=== PATIENT | male | born 1955 | race Caucasian/White ===

== ENCOUNTER 2021-01-15 21:58 | Inpatient (IN) | payer OTHER, MEDICAID ==
[~2021-01-15] VITALS: Ht 180.3 cm; Wt 86.0 kg
[~2021-01-15 21:58] MED LIST: FLUP5TAB14 OR; LITH300C3 OR; QUET400T OR; TRAZ100T3 OR; ZOLP10TA6 OR
[2021-01-15 23:04] LABS: Basophils # (auto) 0 10 ^3/uL (0-0.2); Basophils % (auto) 0.4 % (0.0-2.0); Eosinophils # (auto) 0.1 10 ^3/uL (0-0.8); Eosinophils % (auto) 0.6 % (0.0-7.0); Hematocrit 49.2 % (41.0-53.0); Hemoglobin 15.8 g/dL (13.5-17.5); Lymphocytes # (auto) 0.7 10 ^3/uL (0.4-5.4); Lymphocytes % (auto) 5.1 % (10.0-50.0); Mean Corpuscular Hemoglobin 30.1 pg (28.0-32.0); Mean Corpuscular Hgb Conc. 32.1 g/dL (32.0-36.0); Mean Corpuscular Volume 93.5 fL (80.0-100.0); Monocytes # (auto) 0.7 10 ^3/uL (0-1.3); Monocytes % (auto) 5.4 % (0.0-12.0); Neutrophils # (auto) 11.9 10 ^3/uL (1.6-8.6); Neutrophils % (auto) 88.5 % (37.0-80.0); Nucleated Red Blood Cells % 0.1 %; Platelet Count (auto) 224 10^3/uL (140-450); Red Blood Cells 5.26 10^6/uL (4.5-5.90); Red Cell Distribution Width 16.4 % (11.8-14.3); White Blood Cell 13.4 10^3/uL (4.4-10.8)
[2021-01-15 23:23] LABS: INR 1.14 (0.9-1.15); Partial Thromboplastin Time 29.1 sec (23.0-31.2)
[2021-01-15 23:24] LABS: Albumin 3.5 g/dL (3.4-5.0); Anion Gap 5 (5-15); Blood Urea Nitrogen 21 mg/dL (7-18); Calcium 9.1 mg/dL (8.5-10.1); Carbon Dioxide 34 mmol/L (21-32); Chloride 96 mmol/L (98-107); Glucose 99 mg/dL (74-106); Magnesium 2.5 mg/dL (1.6-2.6); Potassium 4.3 mmol/L (3.5-5.1); Sodium 135 mmol/L (136-145)
[2021-01-15 23:27] LABS: BUN/Creatinine Ratio 15.7; GFR African American 69 mL/min; GFR Non-African American 57 mL/min
[2021-01-15 23:38] LABS: Alanine Aminotransferase 37 U/L (16-61); Alkaline Phosphatase 47 U/L (45-117); Aspartate Aminotransferase 15 U/L (15-37); Bilirubin, Total 0.9 mg/dL (0.2-1.0); Total Protein 6.8 g/dL (6.4-8.2)
[2021-01-15] MEDS ORDERED: FUROSEMIDE 20 MG/2 ML VIAL IV ONE (23:45)
[2021-01-15] MEDS ORDERED: VANCOMYCIN PER PHARMACY 0 MG IV SCH (23:45)
[2021-01-15] MEDS ORDERED: VANCOMYCIN 1GM/250ML 250 ML IV ONE (23:45)
[2021-01-15] MEDS ORDERED: PIPERACILLIN-TAZOB 3.375GM 100 ML IV ONE (23:45)
[2021-01-16 00:36] LABS: Lactic Acid w/Reflex 2.1 mmol/L (0.4-2.0)
[2021-01-16 01:58] LABS: Urine WBC None Seen /hpf (0 - 3)
[2021-01-16 02:12] LABS: Urine Bacteria NONE SEEN /hpf (None Seen); Urine Blood Negative /uL (Negative); Urine Mucus FEW (None Seen); Urine Specific Gravity 1.006 (1.001-1.035)
[2021-01-16 02:37] LABS: Alcohol, Urine < 3.0 mg/dL (0-10); Amphetamine Screen, Urine NEGATIVE (NEGATIVE); Barbiturate Scree,Urine NEGATIVE (NEGATIVE); Benzodiazephine Screen, Urine NEGATIVE (NEGATIVE); Cannabinoid Screen, Urine NEGATIVE (NEGATIVE); Cocaine Screen, Urine NEGATIVE (NEGATIVE); Opiate Scree,Urine NEGATIVE (NEGATIVE); Phencyclidine Screen, Urine NEGATIVE (NEGATIVE)
[2021-01-16] MEDS ORDERED: NITROGLYCERIN 0.4 MG SL TAB SL PRN (04:30)
[2021-01-16] MEDS ORDERED: ONDANSETRON HCL 4 MG/2 ML VIAL IV PRN (04:30)
[2021-01-16] MEDS ORDERED: ACETAMINOPHEN 325 MG TAB PO PRN (04:30)
[2021-01-16] MEDS ORDERED: MORPHINE SULF INJ 2 MG/ML SYRINGE 1ML IV PRN (04:30)
[2021-01-16] MEDS ORDERED: TEMAZEPAM 15 MG CAP PO PRN (04:30)
[2021-01-16] MEDS ORDERED: ALBUTEROL SULF 2.5 MG/0.5ML(0.5%) NEB SOLN NEB PRN (04:30)
[2021-01-16] MEDS: FUROSEMIDE 20 MG/2 ML VIAL IV SCH ×2 (06:13→17:32)
[2021-01-16 06:27] VITALS: BP 113/76
[2021-01-16] MEDS ORDERED: PROP10TA57 PO (06:34)
[2021-01-16] MEDS ORDERED: LITH300C3 PO (06:34)
[2021-01-16] MEDS ORDERED: IPRAAER6 IN (06:34)
[2021-01-16] MEDS ORDERED: FOLI1TAB6 PO (06:34)
[2021-01-16] MEDS ORDERED: TRAZ100T3 PO (06:34)
[2021-01-16] MEDS ORDERED: LEVO500T31 PO (06:34)
[2021-01-16] MEDS ORDERED: ASPI-498 OR (06:34)
[2021-01-16] MEDS ORDERED: QUET200T4 PO (06:34)
[2021-01-16] MEDS ORDERED: SIMV20TA2 PO (06:34)
[2021-01-16 06:37] VITALS: BP 101/42
[2021-01-16] MEDS ORDERED: PNEUMOCOCCAL VACC POLYS 25 MCG/0.5 ML VIAL IM ONE (06:45)
[2021-01-16 09:00] VITALS: BP 121/78
[2021-01-16] MEDS: ASPirin 81 mg TAB PO SCH (09:00)
[2021-01-16] MEDS: QUEtiapine FUMARATE 100 MG TAB PO SCH ×2 (09:00→21:38)
[2021-01-16] MEDS: PANTOPRAZOLE 40 MG TAB PO SCH (09:01)
[2021-01-16] MEDS: ENOXAPARIN SOD 40 MG/0.4 ML SYRINGE SC SCH (09:01)
[2021-01-16] MEDS: cefTRIAXone 1GM/50ML D5W 50 ML IV SCH (09:02)
[2021-01-16] MEDS: AZITHROMYCIN 500MG/ 250ML 250 ML IV SCH (10:19)
[2021-01-16 10:52] LABS: BUN/Creatinine Ratio 15.3; Calcium 9.1 mg/dL (8.5-10.1); Potassium 3.3 mmol/L (3.5-5.1)
[2021-01-16] MEDS ORDERED: SODIUM BICARBONATE 8.4 % INJ 50ML VIAL IV ONE (12:45)
[2021-01-16 14:00] VITALS: BP 100/78
[2021-01-16 17:17] VITALS: BP 92/57
[2021-01-16] MEDS: ATORVASTATIN 20 MG TAB PO SCH (21:38)
[2021-01-16] MEDS: LITHIUM CARBONATE 300 MG TAB PO SCH (21:38)
[2021-01-16 22:00] VITALS: BP 105/65
[2021-01-17] VITALS (49 sets, daily range): BP systolic 80–117; BP diastolic 48–72
[2021-01-17] MEDS: FUROSEMIDE 20 MG/2 ML VIAL IV SCH ×2 (05:44→17:41)
[2021-01-17 06:43] LABS: Basophils # (auto) 0 10 ^3/uL (0-0.2); Basophils % (auto) 0.2 % (0.0-2.0); Eosinophils # (auto) 0 10 ^3/uL (0-0.8); Eosinophils % (auto) 0.3 % (0.0-7.0); Hematocrit 45.6 % (41.0-53.0); Hemoglobin 14.4 g/dL (13.5-17.5); Lymphocytes # (auto) 0.4 10 ^3/uL (0.4-5.4); Lymphocytes % (auto) 2.3 % (10.0-50.0); Mean Corpuscular Hemoglobin 29.9 pg (28.0-32.0); Mean Corpuscular Hgb Conc. 31.6 g/dL (32.0-36.0); Mean Corpuscular Volume 94.4 fL (80.0-100.0); Monocytes # (auto) 1.2 10 ^3/uL (0-1.3); Monocytes % (auto) 7.4 % (0.0-12.0); Neutrophils # (auto) 14.6 10 ^3/uL (1.6-8.6); Neutrophils % (auto) 89.8 % (37.0-80.0); Nucleated Red Blood Cells % 0.1 %; Platelet Count (auto) 174 10^3/uL (140-450); Red Blood Cells 4.83 10^6/uL (4.5-5.90); Red Cell Distribution Width 16.6 % (11.8-14.3); White Blood Cell 16.3 10^3/uL (4.4-10.8)
[2021-01-17 07:00] LABS: BUN/Creatinine Ratio 14.4; Calcium 8.8 mg/dL (8.5-10.1); Potassium 4.2 mmol/L (3.5-5.1)
[2021-01-17] MEDS: ASPirin 81 mg TAB PO SCH (08:56)
[2021-01-17] MEDS: QUEtiapine FUMARATE 100 MG TAB PO SCH ×2 (08:56→22:00)
[2021-01-17] MEDS: PANTOPRAZOLE 40 MG TAB PO SCH (08:57)
[2021-01-17] MEDS: cefTRIAXone 1GM/50ML D5W 50 ML IV SCH (08:57)
[2021-01-17] MEDS: ENOXAPARIN SOD 40 MG/0.4 ML SYRINGE SC SCH (08:57)
[2021-01-17] MEDS ORDERED: methylPREDNISolone SOD SUCC 125 MG/2 ML VL IV SCH (10:00)
[2021-01-17] MEDS ORDERED: FUROSEMIDE 20 MG/2 ML VIAL IV ONE (10:15)
[2021-01-17] MEDS: methylPREDNISolone SOD SUCC 40 MG/ML VL IV SCH ×2 (10:46→22:00)
[2021-01-17] MEDS: AZITHROMYCIN 500MG/ 250ML 250 ML IV SCH (10:47)
[2021-01-17] MEDS ORDERED: MIDAZOLAM HCL 1MG/1ML-2 ML VIAL ONE (12:14)
[2021-01-17] MEDS ORDERED: SUCCINYLCHOLINE CHLORIDE 20 MG/ML 10ML VIAL IV ONE ×2 (12:14)
[2021-01-17] MEDS ORDERED: ETOMIDATE (2MG/ML) 20ML VIAL IV ONE ×2 (12:14)
[2021-01-17] MEDS ORDERED: ROCURONIUM 10MG/ML 10ML VIAL IV ONE ×2 (12:14→12:22)
[2021-01-17] MEDS: NOREPINEPHRINE 8 MG/250ML KIT 250 ML IV SCH (12:45)
[2021-01-17] MEDS: fentaNYL Drip 2500mCg/250mlNS 250 ML IV SCH (14:00)
[2021-01-17] MEDS ORDERED: LIDOCAINE 1% (LOCAL ANESTH.) PF 5ml SDV ID ONE (15:15)
[2021-01-17] MEDS: MIDAZOLAM DRIP 50 mg/50mL 50 ML IV SCH (15:15)
[2021-01-17] MEDS: LITHIUM CARBONATE 300 MG TAB PO SCH (22:00)
[2021-01-17] MEDS: SODIUM CHLOR 0.9% PF (SALINE LOCK) 10ML VIAL/SYR IV SCH (22:00)
[2021-01-17] MEDS: ATORVASTATIN 20 MG TAB PO SCH (22:00)
[2021-01-18] VITALS (107 sets, daily range): BP systolic 82–144; BP diastolic 43–81
[2021-01-18 04:20] LABS: Basophils # (auto) 0 10 ^3/uL (0-0.2); Basophils % (auto) 0.1 % (0.0-2.0); Eosinophils # (auto) 0 10 ^3/uL (0-0.8); Hematocrit 40.7 % (41.0-53.0); Hemoglobin 13.5 g/dL (13.5-17.5); Lymphocytes # (auto) 0.5 10 ^3/uL (0.4-5.4); Lymphocytes % (auto) 2.5 % (10.0-50.0); Mean Corpuscular Hemoglobin 30.5 pg (28.0-32.0); Mean Corpuscular Hgb Conc. 33.1 g/dL (32.0-36.0); Mean Corpuscular Volume 92.2 fL (80.0-100.0); Monocytes # (auto) 0.6 10 ^3/uL (0-1.3); Monocytes % (auto) 3.1 % (0.0-12.0); Neutrophils # (auto) 17.5 10 ^3/uL (1.6-8.6); Neutrophils % (auto) 94.3 % (37.0-80.0); Platelet Count (auto) 159 10^3/uL (140-450); Red Blood Cells 4.42 10^6/uL (4.5-5.90); Red Cell Distribution Width 16.6 % (11.8-14.3); White Blood Cell 18.5 10^3/uL (4.4-10.8)
[2021-01-18 04:31] LABS: BUN/Creatinine Ratio 21.1; Calcium 9.1 mg/dL (8.5-10.1); Potassium 3.3 mmol/L (3.5-5.1)
[2021-01-18] MEDS: FUROSEMIDE 20 MG/2 ML VIAL IV SCH ×2 (06:00→17:34)
[2021-01-18] MEDS: MIDAZOLAM DRIP 50 mg/50mL 50 ML IV SCH ×3 (06:29→21:27)
[2021-01-18] MEDS: POTASSIUM CHL 20MEQ/100ML 100 ML IV SCH ×2 (09:49→12:11)
[2021-01-18] MEDS: ASPirin 81 mg TAB PO SCH (09:49)
[2021-01-18] MEDS: AZITHROMYCIN 500MG/ 250ML 250 ML IV SCH (09:49)
[2021-01-18] MEDS: PANTOPRAZOLE 40 MG/10 ML VIAL INJ IV SCH (09:49)
[2021-01-18] MEDS: methylPREDNISolone SOD SUCC 40 MG/ML VL IV SCH ×2 (09:49→20:03)
[2021-01-18] MEDS: cefTRIAXone 1GM/50ML D5W 50 ML IV SCH (09:51)
[2021-01-18] MEDS: SODIUM CHLOR 0.9% PF (SALINE LOCK) 10ML VIAL/SYR IV SCH ×2 (09:51→20:02)
[2021-01-18] MEDS: QUEtiapine FUMARATE 100 MG TAB PO SCH ×2 (10:00→20:03)
[2021-01-18] MEDS: ENOXAPARIN SOD 40 MG/0.4 ML SYRINGE SC SCH (12:11)
[2021-01-18] MEDS: NOREPINEPHRINE 8 MG/250ML KIT 250 ML IV SCH (12:45)
[2021-01-18] MEDS: fentaNYL Drip 2500mCg/250mlNS 250 ML IV SCH ×2 (12:45→19:28)
[2021-01-18] MEDS: LITHIUM CARBONATE 300 MG TAB PO SCH (20:03)
[2021-01-18] MEDS: ATORVASTATIN 20 MG TAB PO SCH (20:03)
[2021-01-19] VITALS (106 sets, daily range): BP systolic 109–155; BP diastolic 45–73
[2021-01-19 03:59] LABS: Basophils # (auto) 0.1 10 ^3/uL (0-0.2); Basophils % (auto) 0.5 % (0.0-2.0); Eosinophils # (auto) 0 10 ^3/uL (0-0.8); Hematocrit 37.8 % (41.0-53.0); Hemoglobin 12.4 g/dL (13.5-17.5); Lymphocytes # (auto) 0.5 10 ^3/uL (0.4-5.4); Lymphocytes % (auto) 2.2 % (10.0-50.0); Mean Corpuscular Hemoglobin 29.7 pg (28.0-32.0); Mean Corpuscular Hgb Conc. 32.8 g/dL (32.0-36.0); Mean Corpuscular Volume 90.6 fL (80.0-100.0); Monocytes # (auto) 0.8 10 ^3/uL (0-1.3); Monocytes % (auto) 3.8 % (0.0-12.0); Neutrophils # (auto) 20.6 10 ^3/uL (1.6-8.6); Neutrophils % (auto) 93.5 % (37.0-80.0); Nucleated Red Blood Cells % 0.1 %; Platelet Count (auto) 156 10^3/uL (140-450); Red Blood Cells 4.18 10^6/uL (4.5-5.90); Red Cell Distribution Width 16.8 % (11.8-14.3)
[2021-01-19] MEDS: MIDAZOLAM DRIP 50 mg/50mL 50 ML IV SCH (04:01)
[2021-01-19 04:15] LABS: Albumin 2.5 g/dL (3.4-5.0); Calcium 8.6 mg/dL (8.5-10.1)
[2021-01-19 04:18] LABS: Bilirubin, Total 1.8 mg/dL (0.2-1.0)
[2021-01-19 04:30] LABS: Potassium 2.8 mmol/L (3.5-5.1)
[2021-01-19] MEDS: FUROSEMIDE 20 MG/2 ML VIAL IV SCH ×2 (05:03→17:36)
[2021-01-19] MEDS: POTASSIUM CHL 20MEQ/100ML 100 ML IV SCH ×3 (05:23→09:42)
[2021-01-19] MEDS ORDERED: VANCOMYCIN PER PHARMACY 0 MG IV SCH (08:45)
[2021-01-19] MEDS: cefTRIAXone 1GM/50ML D5W 50 ML IV SCH (08:58)
[2021-01-19] MEDS: PANTOPRAZOLE 40 MG/10 ML VIAL INJ IV SCH (09:42)
[2021-01-19] MEDS: QUEtiapine FUMARATE 100 MG TAB PO SCH ×2 (09:42→22:16)
[2021-01-19] MEDS: ENOXAPARIN SOD 40 MG/0.4 ML SYRINGE SC SCH (09:42)
[2021-01-19] MEDS: ASPirin 81 mg TAB PO SCH (09:42)
[2021-01-19] MEDS: methylPREDNISolone SOD SUCC 40 MG/ML VL IV SCH ×2 (09:42→22:16)
[2021-01-19] MEDS: AZITHROMYCIN 500MG/ 250ML 250 ML IV SCH (09:42)
[2021-01-19] MEDS: SODIUM CHLOR 0.9% PF (SALINE LOCK) 10ML VIAL/SYR IV SCH ×2 (11:21→22:16)
[2021-01-19] MEDS: VANCOMYCIN 1GM/250ML 250 ML IV SCH (11:46)
[2021-01-19] MEDS: NOREPINEPHRINE 8 MG/250ML KIT 250 ML IV SCH (11:46)
[2021-01-19] MEDS ORDERED: POTASSIUM CHL 20MEQ/100ML 100 ML IV ONE (12:00)
[2021-01-19] MEDS: acetaZOLAMIDE SODIUM 500 MG VL IV SCH (22:00)
[2021-01-19] MEDS: ATORVASTATIN 20 MG TAB PO SCH (22:16)
[2021-01-19] MEDS: LITHIUM CARBONATE 300 MG TAB PO SCH (22:16)
[2021-01-20] VITALS (71 sets, daily range): BP systolic 117–164; BP diastolic 61–85
[2021-01-20 04:08] LABS: Basophils # (auto) 0 10 ^3/uL (0-0.2); Eosinophils # (auto) 0 10 ^3/uL (0-0.8); Hematocrit 35.5 % (41.0-53.0); Hemoglobin 11.6 g/dL (13.5-17.5); Lymphocytes # (auto) 0.5 10 ^3/uL (0.4-5.4); Lymphocytes % (auto) 2.6 % (10.0-50.0); Mean Corpuscular Hemoglobin 29.9 pg (28.0-32.0); Mean Corpuscular Hgb Conc. 32.7 g/dL (32.0-36.0); Mean Corpuscular Volume 91.5 fL (80.0-100.0); Monocytes # (auto) 0.9 10 ^3/uL (0-1.3); Monocytes % (auto) 4.7 % (0.0-12.0); Neutrophils # (auto) 18.2 10 ^3/uL (1.6-8.6); Neutrophils % (auto) 92.7 % (37.0-80.0); Platelet Count (auto) 149 10^3/uL (140-450); Red Blood Cells 3.89 10^6/uL (4.5-5.90); Red Cell Distribution Width 16.7 % (11.8-14.3); White Blood Cell 19.7 10^3/uL (4.4-10.8)
[2021-01-20 04:26] LABS: Calcium 7.2 mg/dL (8.5-10.1)
[2021-01-20 04:28] LABS: BUN/Creatinine Ratio 31.1
[2021-01-20 04:40] LABS: Potassium 2.9 mmol/L (3.5-5.1)
[2021-01-20] MEDS: FUROSEMIDE 20 MG/2 ML VIAL IV SCH ×2 (06:18→18:26)
[2021-01-20] MEDS: cefTRIAXone 1GM/50ML D5W 50 ML IV SCH (09:53)
[2021-01-20] MEDS: POTASSIUM CHL 20MEQ/100ML 100 ML IV SCH ×4 (09:54→21:43)
[2021-01-20] MEDS: PANTOPRAZOLE 40 MG/10 ML VIAL INJ IV SCH (09:58)
[2021-01-20] MEDS: acetaZOLAMIDE SODIUM 500 MG VL IV SCH (09:58)
[2021-01-20] MEDS: QUEtiapine FUMARATE 100 MG TAB PO SCH ×2 (09:59→21:49)
[2021-01-20] MEDS: methylPREDNISolone SOD SUCC 40 MG/ML VL IV SCH ×2 (09:59→21:49)
[2021-01-20] MEDS: SODIUM CHLOR 0.9% PF (SALINE LOCK) 10ML VIAL/SYR IV SCH ×2 (09:59→21:43)
[2021-01-20] MEDS: ASPirin 81 mg TAB PO SCH (09:59)
[2021-01-20] MEDS: AZITHROMYCIN 500MG/ 250ML 250 ML IV SCH (09:59)
[2021-01-20] MEDS: ENOXAPARIN SOD 40 MG/0.4 ML SYRINGE SC SCH (10:00)
[2021-01-20] MEDS: VANCOMYCIN 1GM/250ML 250 ML IV SCH ×2 (12:39)
[2021-01-20] MEDS: fentaNYL Drip 2500mCg/250mlNS 250 ML IV SCH (12:40)
[2021-01-20] MEDS: NOREPINEPHRINE 8 MG/250ML KIT 250 ML IV SCH (12:45)
[2021-01-20] MEDS: MIDAZOLAM DRIP 50 mg/50mL 50 ML IV SCH (12:45)
[2021-01-20] MEDS ORDERED: LACTULOSE 20Gm/30ML SOLN PO PRN (15:15)
[2021-01-20] MEDS ORDERED: POTASSIUM CHL 20MEQ/100ML 100 ML IV ONE (21:01)
[2021-01-20] MEDS: LITHIUM CARBONATE 300 MG TAB PO SCH (21:49)
[2021-01-20] MEDS: ATORVASTATIN 20 MG TAB PO SCH (21:49)
[2021-01-21] VITALS (39 sets, daily range): BP systolic 114–152; BP diastolic 57–98
[2021-01-21] MEDS: FUROSEMIDE 20 MG/2 ML VIAL IV SCH ×2 (05:06→17:34)
[2021-01-21 08:51] LABS: Basophils # (auto) 0 10 ^3/uL (0-0.2); Basophils % (auto) 0.1 % (0.0-2.0); Eosinophils # (auto) 0 10 ^3/uL (0-0.8); Hematocrit 42.1 % (41.0-53.0); Hemoglobin 13.6 g/dL (13.5-17.5); Lymphocytes # (auto) 0.7 10 ^3/uL (0.4-5.4); Lymphocytes % (auto) 3.1 % (10.0-50.0); Mean Corpuscular Hemoglobin 29.5 pg (28.0-32.0); Mean Corpuscular Hgb Conc. 32.4 g/dL (32.0-36.0); Mean Corpuscular Volume 91.2 fL (80.0-100.0); Monocytes # (auto) 0.8 10 ^3/uL (0-1.3); Monocytes % (auto) 3.5 % (0.0-12.0); Neutrophils # (auto) 21.8 10 ^3/uL (1.6-8.6); Neutrophils % (auto) 93.3 % (37.0-80.0); Platelet Count (auto) 172 10^3/uL (140-450); Red Blood Cells 4.61 10^6/uL (4.5-5.90); Red Cell Distribution Width 16.7 % (11.8-14.3); White Blood Cell 23.4 10^3/uL (4.4-10.8)
[2021-01-21 09:09] LABS: Albumin 2.8 g/dL (3.4-5.0); Calcium 8.9 mg/dL (8.5-10.1); Potassium 3.9 mmol/L (3.5-5.1)
[2021-01-21 09:12] LABS: BUN/Creatinine Ratio 28.9; Bilirubin, Total 1.2 mg/dL (0.2-1.0); Total Protein 5.7 g/dL (6.4-8.2)
[2021-01-21] MEDS: AZITHROMYCIN 500MG/ 250ML 250 ML IV SCH (10:18)
[2021-01-21] MEDS: POTASSIUM CHL 20MEQ/100ML 100 ML IV SCH (10:18)
[2021-01-21] MEDS: SODIUM CHLOR 0.9% PF (SALINE LOCK) 10ML VIAL/SYR IV SCH ×2 (10:19→21:02)
[2021-01-21] MEDS: methylPREDNISolone SOD SUCC 40 MG/ML VL IV SCH ×2 (10:19→21:03)
[2021-01-21] MEDS: cefTRIAXone 1GM/50ML D5W 50 ML IV SCH (10:19)
[2021-01-21] MEDS: ENOXAPARIN SOD 40 MG/0.4 ML SYRINGE SC SCH (10:19)
[2021-01-21] MEDS: PANTOPRAZOLE 40 MG/10 ML VIAL INJ IV SCH (10:19)
[2021-01-21] MEDS: fentaNYL Drip 2500mCg/250mlNS 250 ML IV SCH (11:29)
[2021-01-21] MEDS: NOREPINEPHRINE 8 MG/250ML KIT 250 ML IV SCH (11:30)
[2021-01-21] MEDS: MIDAZOLAM DRIP 50 mg/50mL 50 ML IV SCH (11:30)
[2021-01-21] MEDS ORDERED: EPINEPHrine HCL 0.5 ML NEB NEB ONE ×2 (12:45→17:30)
[2021-01-21] MEDS: VANCOMYCIN 1GM/250ML 250 ML IV SCH ×2 (13:19)
[2021-01-21] MEDS: QUEtiapine FUMARATE 100 MG TAB PO SCH ×2 (13:26→21:03)
[2021-01-21] MEDS: ASPirin 81 mg TAB PO SCH (13:26)
[2021-01-21] MEDS ORDERED: methylPREDNISolone SOD SUCC 40 MG/ML VL ONE (14:29)
[2021-01-21] MEDS ORDERED: methylPREDNISolone SOD SUCC 40 MG/ML VL IV ONE (14:30)
[2021-01-21] MEDS: ALBUTEROL SULF 2.5 MG/0.5ML(0.5%) NEB SOLN NEB SCH ×2 (17:56→22:05)
[2021-01-21] MEDS: IPRATROPIUM BROM 0.5 MG/2.5ML INH SOL NEB SCH ×2 (17:56→22:05)
[2021-01-21] MEDS: LITHIUM CARBONATE 300 MG TAB PO SCH (21:03)
[2021-01-21] MEDS: ATORVASTATIN 20 MG TAB PO SCH (21:03)
[2021-01-22] VITALS (19 sets, daily range): BP systolic 113–141; BP diastolic 59–77
[2021-01-22] MEDS ORDERED: EPINEPHrine HCL 0.5 ML NEB ONE (02:24)
[2021-01-22] MEDS: ALBUTEROL SULF 2.5 MG/0.5ML(0.5%) NEB SOLN NEB SCH ×6 (02:27→22:43)
[2021-01-22] MEDS: IPRATROPIUM BROM 0.5 MG/2.5ML INH SOL NEB SCH ×6 (02:27→22:43)
[2021-01-22] MEDS ORDERED: EPINEPHrine HCL 0.5 ML NEB NEB ONE ×2 (02:30→06:45)
[2021-01-22] MEDS: FUROSEMIDE 20 MG/2 ML VIAL IV SCH ×2 (05:29→18:27)
[2021-01-22] MEDS: PANTOPRAZOLE 40 MG/10 ML VIAL INJ IV SCH (09:14)
[2021-01-22] MEDS: ENOXAPARIN SOD 40 MG/0.4 ML SYRINGE SC SCH (09:14)
[2021-01-22] MEDS: cefTRIAXone 1GM/50ML D5W 50 ML IV SCH (09:14)
[2021-01-22] MEDS: methylPREDNISolone SOD SUCC 40 MG/ML VL IV SCH ×2 (09:14→22:00)
[2021-01-22] MEDS: ASPirin 81 mg TAB PO SCH (09:15)
[2021-01-22] MEDS: POTASSIUM CHL 20MEQ/100ML 100 ML IV SCH (09:15)
[2021-01-22] MEDS: QUEtiapine FUMARATE 100 MG TAB PO SCH ×2 (09:15→22:00)
[2021-01-22 09:53] LABS: Basophils # (auto) 0 10 ^3/uL (0-0.2); Basophils % (auto) 0.1 % (0.0-2.0); Eosinophils # (auto) 0 10 ^3/uL (0-0.8); Eosinophils % (auto) 0.1 % (0.0-7.0); Hematocrit 42.5 % (41.0-53.0); Hemoglobin 13.8 g/dL (13.5-17.5); Lymphocytes # (auto) 0.5 10 ^3/uL (0.4-5.4); Lymphocytes % (auto) 1.9 % (10.0-50.0); Mean Corpuscular Hemoglobin 29.8 pg (28.0-32.0); Mean Corpuscular Hgb Conc. 32.4 g/dL (32.0-36.0); Mean Corpuscular Volume 91.9 fL (80.0-100.0); Monocytes # (auto) 1.7 10 ^3/uL (0-1.3); Monocytes % (auto) 6.7 % (0.0-12.0); Neutrophils # (auto) 23.5 10 ^3/uL (1.6-8.6); Neutrophils % (auto) 91.2 % (37.0-80.0); Platelet Count (auto) 198 10^3/uL (140-450); Red Blood Cells 4.63 10^6/uL (4.5-5.90); Red Cell Distribution Width 16.7 % (11.8-14.3); White Blood Cell 25.7 10^3/uL (4.4-10.8)
[2021-01-22] MEDS: AZITHROMYCIN 500MG/ 250ML 250 ML IV SCH (10:03)
[2021-01-22] MEDS: SODIUM CHLOR 0.9% PF (SALINE LOCK) 10ML VIAL/SYR IV SCH ×2 (10:03→22:00)
[2021-01-22 10:30] LABS: BUN/Creatinine Ratio 29.2; Calcium 9.1 mg/dL (8.5-10.1); Potassium 3.8 mmol/L (3.5-5.1)
[2021-01-22] MEDS: NOREPINEPHRINE 8 MG/250ML KIT 250 ML IV SCH (12:45)
[2021-01-22] MEDS: fentaNYL Drip 2500mCg/250mlNS 250 ML IV SCH (12:45)
[2021-01-22] MEDS: MIDAZOLAM DRIP 50 mg/50mL 50 ML IV SCH (12:45)
[2021-01-22] MEDS: VANCOMYCIN 1GM/250ML 250 ML IV SCH (13:21)
[2021-01-22] MEDS: ATORVASTATIN 20 MG TAB PO SCH (22:00)
[2021-01-22] MEDS: LITHIUM CARBONATE 300 MG TAB PO SCH (22:00)
[2021-01-23] VITALS (16 sets, daily range): BP systolic 119–155; BP diastolic 68–87
[2021-01-23] MEDS: IPRATROPIUM BROM 0.5 MG/2.5ML INH SOL NEB SCH ×6 (02:09→22:18)
[2021-01-23] MEDS: ALBUTEROL SULF 2.5 MG/0.5ML(0.5%) NEB SOLN NEB SCH ×6 (02:09→22:18)
[2021-01-23] MEDS: FUROSEMIDE 20 MG/2 ML VIAL IV SCH ×2 (06:00→18:22)
[2021-01-23] MEDS: ASPirin 81 mg TAB PO SCH (10:17)
[2021-01-23] MEDS: POTASSIUM CHL 20MEQ/100ML 100 ML IV SCH (10:18)
[2021-01-23] MEDS: ENOXAPARIN SOD 40 MG/0.4 ML SYRINGE SC SCH (10:18)
[2021-01-23] MEDS: QUEtiapine FUMARATE 100 MG TAB PO SCH ×2 (10:18→22:00)
[2021-01-23] MEDS: FLUCONAZOLE 200MG/100ML 100 ML IV SCH ×2 (10:18→16:02)
[2021-01-23] MEDS: PANTOPRAZOLE 40 MG/10 ML VIAL INJ IV SCH (10:19)
[2021-01-23] MEDS: cefTRIAXone 1GM/50ML D5W 50 ML IV SCH (10:19)
[2021-01-23] MEDS: SODIUM CHLOR 0.9% PF (SALINE LOCK) 10ML VIAL/SYR IV SCH ×2 (10:19→22:00)
[2021-01-23] MEDS: NOREPINEPHRINE 8 MG/250ML KIT 250 ML IV SCH (12:45)
[2021-01-23] MEDS: MIDAZOLAM DRIP 50 mg/50mL 50 ML IV SCH (12:45)
[2021-01-23] MEDS: fentaNYL Drip 2500mCg/250mlNS 250 ML IV SCH (12:45)
[2021-01-23] MEDS: VANCOMYCIN 1GM/250ML 250 ML IV SCH (16:02)
[2021-01-23] MEDS: ATORVASTATIN 20 MG TAB PO SCH (22:00)
[2021-01-23] MEDS: LITHIUM CARBONATE 300 MG TAB PO SCH (22:00)
[2021-01-24] VITALS (10 sets, daily range): BP systolic 111–158; BP diastolic 66–95
[2021-01-24] MEDS: ALBUTEROL SULF 2.5 MG/0.5ML(0.5%) NEB SOLN NEB SCH ×6 (02:04→23:19)
[2021-01-24] MEDS: IPRATROPIUM BROM 0.5 MG/2.5ML INH SOL NEB SCH ×6 (02:05→23:19)
[2021-01-24] MEDS: FUROSEMIDE 20 MG/2 ML VIAL IV SCH ×2 (06:49→17:06)
[2021-01-24] MEDS: cefTRIAXone 1GM/50ML D5W 50 ML IV SCH (09:00)
[2021-01-24] MEDS: QUEtiapine FUMARATE 100 MG TAB PO SCH ×2 (09:46→22:21)
[2021-01-24] MEDS: FLUCONAZOLE 200MG/100ML 100 ML IV SCH ×2 (09:46→11:00)
[2021-01-24] MEDS: ASPirin 81 mg TAB PO SCH (09:46)
[2021-01-24] MEDS: POTASSIUM CHL 20MEQ/100ML 100 ML IV SCH (09:46)
[2021-01-24] MEDS: SODIUM CHLOR 0.9% PF (SALINE LOCK) 10ML VIAL/SYR IV SCH ×2 (09:46→22:20)
[2021-01-24] MEDS: PANTOPRAZOLE 40 MG/10 ML VIAL INJ IV SCH (09:46)
[2021-01-24] MEDS: ENOXAPARIN SOD 40 MG/0.4 ML SYRINGE SC SCH (09:47)
[2021-01-24] MEDS: VANCOMYCIN 1GM/250ML 250 ML IV SCH (12:15)
[2021-01-24] MEDS: LITHIUM CARBONATE 300 MG TAB PO SCH (22:20)
[2021-01-24] MEDS: ATORVASTATIN 20 MG TAB PO SCH (22:21)
[2021-01-25] VITALS (7 sets, daily range): BP systolic 109–153; BP diastolic 68–85
[2021-01-25] MEDS: ALBUTEROL SULF 2.5 MG/0.5ML(0.5%) NEB SOLN NEB SCH ×6 (02:46→22:56)
[2021-01-25] MEDS: IPRATROPIUM BROM 0.5 MG/2.5ML INH SOL NEB SCH ×6 (02:46→22:56)
[2021-01-25 06:14] LABS: Hematocrit 41.4 % (41.0-53.0); Hemoglobin 13.5 g/dL (13.5-17.5); Mean Corpuscular Hemoglobin 29.4 pg (28.0-32.0); Mean Corpuscular Hgb Conc. 32.5 g/dL (32.0-36.0); Mean Corpuscular Volume 90.3 fL (80.0-100.0); Platelet Count (auto) 200 10^3/uL (140-450); Red Blood Cells 4.59 10^6/uL (4.5-5.90); Red Cell Distribution Width 16.3 % (11.8-14.3); White Blood Cell 14.7 10^3/uL (4.4-10.8)
[2021-01-25] MEDS: FUROSEMIDE 20 MG/2 ML VIAL IV SCH ×2 (06:31→17:46)
[2021-01-25] MEDS: VANCOMYCIN 1GM/250ML 250 ML IV SCH (06:32)
[2021-01-25 06:33] LABS: Basophils % (manual) 0 (0.0-2.0); Blast Cells 0; Metamyelocytes % 0; Promyelocytes % 0; Reactive Lymphocytes 0
[2021-01-25 07:58] LABS: Band Neutrophils % (manual) 1; Eosinophils % (manual) 3 (0-7); Lymphocytes % (manual) 12 (10.0-50.0); Monocytes % (manual) 8 (0-12); Myelocytes % 1
[2021-01-25] MEDS: cefTRIAXone 1GM/50ML D5W 50 ML IV SCH (09:05)
[2021-01-25] MEDS: SODIUM CHLOR 0.9% PF (SALINE LOCK) 10ML VIAL/SYR IV SCH ×2 (09:09→22:19)
[2021-01-25] MEDS: PANTOPRAZOLE 40 MG/10 ML VIAL INJ IV SCH (09:09)
[2021-01-25] MEDS: ENOXAPARIN SOD 40 MG/0.4 ML SYRINGE SC SCH (09:11)
[2021-01-25] MEDS: QUEtiapine FUMARATE 100 MG TAB PO SCH ×2 (09:11→22:18)
[2021-01-25] MEDS: ASPirin 81 mg TAB PO SCH (09:11)
[2021-01-25] MEDS: FLUCONAZOLE 200MG/100ML 100 ML IV SCH ×2 (09:12→10:42)
[2021-01-25] MEDS: POTASSIUM CHL 20MEQ/100ML 100 ML IV SCH (10:44)
[2021-01-25] MEDS: LITHIUM CARBONATE 300 MG TAB PO SCH (22:18)
[2021-01-25] MEDS: ATORVASTATIN 20 MG TAB PO SCH (22:18)
[2021-01-26] MEDS: VANCOMYCIN 1GM/250ML 250 ML IV SCH ×2 (01:07→22:51)
[2021-01-26] MEDS: ALBUTEROL SULF 2.5 MG/0.5ML(0.5%) NEB SOLN NEB SCH ×6 (03:05→23:04)
[2021-01-26] MEDS: IPRATROPIUM BROM 0.5 MG/2.5ML INH SOL NEB SCH ×6 (03:06→23:04)
[2021-01-26 04:54] VITALS: BP 119/82
[2021-01-26 06:19] LABS: Hematocrit 41.2 % (41.0-53.0); Hemoglobin 13.7 g/dL (13.5-17.5); Mean Corpuscular Hemoglobin 29.8 pg (28.0-32.0); Mean Corpuscular Hgb Conc. 33.1 g/dL (32.0-36.0); Platelet Count (auto) 205 10^3/uL (140-450); Red Blood Cells 4.58 10^6/uL (4.5-5.90); Red Cell Distribution Width 16.8 % (11.8-14.3); White Blood Cell 14.3 10^3/uL (4.4-10.8)
[2021-01-26 06:25] LABS: Basophils % (manual) 0 (0.0-2.0); Blast Cells 0; Metamyelocytes % 0; Myelocytes % 0; Promyelocytes % 0; Reactive Lymphocytes 0
[2021-01-26] MEDS: FUROSEMIDE 20 MG/2 ML VIAL IV SCH ×2 (06:31→17:18)
[2021-01-26 06:38] LABS: Calcium 9.2 mg/dL (8.5-10.1); Potassium 3.8 mmol/L (3.5-5.1)
[2021-01-26 06:40] LABS: BUN/Creatinine Ratio 19.1
[2021-01-26 07:14] LABS: Band Neutrophils % (manual) 2; Eosinophils % (manual) 2 (0-7); Lymphocytes % (manual) 8 (10.0-50.0); Monocytes % (manual) 5 (0-12)
[2021-01-26 08:30] VITALS: BP 136/86
[2021-01-26] MEDS: PANTOPRAZOLE 40 MG/10 ML VIAL INJ IV SCH (08:49)
[2021-01-26] MEDS: QUEtiapine FUMARATE 100 MG TAB PO SCH ×2 (08:49→22:56)
[2021-01-26] MEDS: ASPirin 81 mg TAB PO SCH (08:49)
[2021-01-26] MEDS: cefTRIAXone 1GM/50ML D5W 50 ML IV SCH (08:49)
[2021-01-26] MEDS: SODIUM CHLOR 0.9% PF (SALINE LOCK) 10ML VIAL/SYR IV SCH ×2 (08:50→22:57)
[2021-01-26] MEDS: ENOXAPARIN SOD 40 MG/0.4 ML SYRINGE SC SCH (08:50)
[2021-01-26] MEDS: FLUCONAZOLE 200MG/100ML 100 ML IV SCH ×2 (09:26→10:54)
[2021-01-26] MEDS: POTASSIUM CHL 20MEQ/100ML 100 ML IV SCH (11:03)
[2021-01-26 13:00] VITALS: BP 119/78
[2021-01-26 16:31] VITALS: BP 120/76
[2021-01-26 21:39] VITALS: BP 137/90
[2021-01-26] MEDS: ATORVASTATIN 20 MG TAB PO SCH (22:56)
[2021-01-26] MEDS: LITHIUM CARBONATE 300 MG TAB PO SCH (22:57)
[2021-01-27] MEDS: ALBUTEROL SULF 2.5 MG/0.5ML(0.5%) NEB SOLN NEB SCH ×7 (01:43→22:29)
[2021-01-27] MEDS: IPRATROPIUM BROM 0.5 MG/2.5ML INH SOL NEB SCH ×7 (01:43→22:29)
[2021-01-27] MEDS ORDERED: FUROSEMIDE 20 MG/2 ML VIAL IV ONE (02:45)
[2021-01-27 05:00] VITALS: BP 126/77
[2021-01-27 05:29] LABS: Hematocrit 44.1 % (41.0-53.0); Hemoglobin 14.3 g/dL (13.5-17.5); Mean Corpuscular Hemoglobin 29.6 pg (28.0-32.0); Mean Corpuscular Hgb Conc. 32.5 g/dL (32.0-36.0); Platelet Count (auto) 228 10^3/uL (140-450); Red Blood Cells 4.84 10^6/uL (4.5-5.90); Red Cell Distribution Width 17.2 % (11.8-14.3); White Blood Cell 17.8 10^3/uL (4.4-10.8)
[2021-01-27 05:39] LABS: Basophils % (manual) 0 (0.0-2.0); Blast Cells 0; Metamyelocytes % 0; Promyelocytes % 0; Reactive Lymphocytes 0
[2021-01-27 06:40] LABS: Band Neutrophils % (manual) 5; Eosinophils % (manual) 2 (0-7); Lymphocytes % (manual) 9 (10.0-50.0); Monocytes % (manual) 5 (0-12); Myelocytes % 1
[2021-01-27] MEDS: FUROSEMIDE 20 MG/2 ML VIAL IV SCH ×2 (06:48→17:00)
[2021-01-27 08:31] VITALS: BP 110/86
[2021-01-27] MEDS: QUEtiapine FUMARATE 100 MG TAB PO SCH ×2 (09:11→21:26)
[2021-01-27] MEDS: cefTRIAXone 1GM/50ML D5W 50 ML IV SCH (09:11)
[2021-01-27] MEDS: ASPirin 81 mg TAB PO SCH (09:11)
[2021-01-27] MEDS: PANTOPRAZOLE 40 MG/10 ML VIAL INJ IV SCH (09:11)
[2021-01-27] MEDS: ENOXAPARIN SOD 40 MG/0.4 ML SYRINGE SC SCH (09:12)
[2021-01-27] MEDS: SODIUM CHLOR 0.9% PF (SALINE LOCK) 10ML VIAL/SYR IV SCH ×2 (09:12→21:27)
[2021-01-27] MEDS: FLUCONAZOLE 200MG/100ML 100 ML IV SCH ×2 (10:22→10:30)
[2021-01-27] MEDS: PIPERACILLIN-TAZOB 3.375GM 100 ML IV SCH ×3 (11:34→23:36)
[2021-01-27 12:45] VITALS: BP 117/82
[2021-01-27] MEDS: VANCOMYCIN 1GM/250ML 250 ML IV SCH (14:10)
[2021-01-27 16:43] VITALS: BP 131/74
[2021-01-27] MEDS: POTASSIUM EFFERVESENT TAB 25 MEQ PO SCH (16:58)
[2021-01-27] MEDS: ATORVASTATIN 20 MG TAB PO SCH (21:26)
[2021-01-27] MEDS: LITHIUM CARBONATE 300 MG TAB PO SCH (21:27)
[2021-01-27 22:00] VITALS: BP 112/70
[2021-01-28] MEDS: IPRATROPIUM BROM 0.5 MG/2.5ML INH SOL NEB SCH ×6 (02:18→22:37)
[2021-01-28] MEDS: ALBUTEROL SULF 2.5 MG/0.5ML(0.5%) NEB SOLN NEB SCH ×6 (02:18→22:37)
[2021-01-28 02:40] VITALS: BP 112/70
[2021-01-28] MEDS: VANCOMYCIN 1GM/250ML 250 ML IV SCH ×2 (03:35→18:09)
[2021-01-28 05:21] VITALS: BP 126/72
[2021-01-28] MEDS: PIPERACILLIN-TAZOB 3.375GM 100 ML IV SCH ×4 (05:32→23:41)
[2021-01-28] MEDS: FUROSEMIDE 20 MG/2 ML VIAL IV SCH ×2 (05:35→17:42)
[2021-01-28 08:56] VITALS: BP 118/80
[2021-01-28] MEDS: POTASSIUM EFFERVESENT TAB 25 MEQ PO SCH (09:33)
[2021-01-28] MEDS: ASPirin 81 mg TAB PO SCH (09:33)
[2021-01-28] MEDS: PANTOPRAZOLE 40 MG/10 ML VIAL INJ IV SCH (09:34)
[2021-01-28] MEDS: QUEtiapine FUMARATE 100 MG TAB PO SCH ×2 (09:34→21:20)
[2021-01-28] MEDS: FLUCONAZOLE 200MG/100ML 100 ML IV SCH ×2 (09:35→11:00)
[2021-01-28] MEDS: SODIUM CHLOR 0.9% PF (SALINE LOCK) 10ML VIAL/SYR IV SCH ×2 (09:54→21:20)
[2021-01-28 12:54] VITALS: BP 110/82
[2021-01-28] MEDS ORDERED: GASTROGRAFIN 120 ML SOL ONE (14:48)
[2021-01-28] MEDS ORDERED: FLEET ENEMA(ADULT) 135 ML PR ONE (16:00)
[2021-01-28 16:35] VITALS: BP 116/80
[2021-01-28] MEDS: LITHIUM CARBONATE 300 MG TAB PO SCH (21:20)
[2021-01-28] MEDS: ATORVASTATIN 20 MG TAB PO SCH (21:20)
[2021-01-28 22:00] VITALS: BP 139/75
[2021-01-29] MEDS: ALBUTEROL SULF 2.5 MG/0.5ML(0.5%) NEB SOLN NEB SCH ×6 (02:34→23:12)
[2021-01-29] MEDS: IPRATROPIUM BROM 0.5 MG/2.5ML INH SOL NEB SCH ×6 (02:34→23:12)
[2021-01-29 04:52] VITALS: BP 149/90
[2021-01-29] MEDS: PIPERACILLIN-TAZOB 3.375GM 100 ML IV SCH ×3 (05:38→17:49)
[2021-01-29] MEDS: FUROSEMIDE 20 MG/2 ML VIAL IV SCH ×2 (05:39→17:49)
[2021-01-29] MEDS: VANCOMYCIN 1GM/250ML 250 ML IV SCH ×2 (08:23→22:07)
[2021-01-29 08:49] LABS: Hematocrit 40.7 % (41.0-53.0); Hemoglobin 13.3 g/dL (13.5-17.5); Mean Corpuscular Hemoglobin 29.2 pg (28.0-32.0); Mean Corpuscular Hgb Conc. 32.6 g/dL (32.0-36.0); Mean Corpuscular Volume 89.4 fL (80.0-100.0); Platelet Count (auto) 227 10^3/uL (140-450); Red Blood Cells 4.55 10^6/uL (4.5-5.90)
[2021-01-29 08:54] LABS: Basophils % (manual) 0 (0.0-2.0); Blast Cells 0; Promyelocytes % 0; Reactive Lymphocytes 0
[2021-01-29 09:00] VITALS: BP 131/100
[2021-01-29 09:06] LABS: Calcium 8.9 mg/dL (8.5-10.1); Potassium 3.1 mmol/L (3.5-5.1)
[2021-01-29] MEDS ORDERED: GASTROGRAFIN 120 ML SOL ONE (09:21)
[2021-01-29] MEDS: QUEtiapine FUMARATE 100 MG TAB PO SCH ×2 (10:00→22:00)
[2021-01-29] MEDS: ASPirin 81 mg TAB PO SCH (10:00)
[2021-01-29] MEDS: POTASSIUM EFFERVESENT TAB 25 MEQ PO SCH (10:00)
[2021-01-29 10:44] LABS: Band Neutrophils % (manual) 3; Eosinophils % (manual) 1 (0-7); Lymphocytes % (manual) 9 (10.0-50.0); Metamyelocytes % 1; Monocytes % (manual) 4 (0-12); Myelocytes % 1
[2021-01-29] MEDS: PANTOPRAZOLE 40 MG/10 ML VIAL INJ IV SCH (11:09)
[2021-01-29] MEDS: FLUCONAZOLE 200MG/100ML 100 ML IV SCH ×2 (11:09→11:47)
[2021-01-29] MEDS: SODIUM CHLOR 0.9% PF (SALINE LOCK) 10ML VIAL/SYR IV SCH ×2 (11:09→22:08)
[2021-01-29 13:00] VITALS: BP 129/89
[2021-01-29 17:00] VITALS: BP 110/76
[2021-01-29 21:35] VITALS: BP 123/87
[2021-01-29] MEDS: ATORVASTATIN 20 MG TAB PO SCH (22:00)
[2021-01-29] MEDS: LITHIUM CARBONATE 300 MG TAB PO SCH (22:00)
[2021-01-30] VITALS (7 sets, daily range): BP systolic 115–156; BP diastolic 74–100
[2021-01-30] MEDS: PIPERACILLIN-TAZOB 3.375GM 100 ML IV SCH ×4 (00:33→18:19)
[2021-01-30] MEDS: ALBUTEROL SULF 2.5 MG/0.5ML(0.5%) NEB SOLN NEB SCH ×6 (02:00→22:41)
[2021-01-30] MEDS: IPRATROPIUM BROM 0.5 MG/2.5ML INH SOL NEB SCH ×6 (02:00→22:41)
[2021-01-30] MEDS: FUROSEMIDE 20 MG/2 ML VIAL IV SCH ×2 (05:29→18:20)
[2021-01-30] MEDS: FLUCONAZOLE 200MG/100ML 100 ML IV SCH ×2 (09:12→11:00)
[2021-01-30] MEDS: ASPirin 81 mg TAB PO SCH ×3 (09:13→14:12)
[2021-01-30] MEDS: QUEtiapine FUMARATE 100 MG TAB PO SCH ×4 (09:13→22:25)
[2021-01-30] MEDS: PANTOPRAZOLE 40 MG/10 ML VIAL INJ IV SCH (09:13)
[2021-01-30] MEDS: POTASSIUM EFFERVESENT TAB 25 MEQ PO SCH ×2 (09:54→13:25)
[2021-01-30] MEDS: SODIUM CHLOR 0.9% PF (SALINE LOCK) 10ML VIAL/SYR IV SCH ×2 (10:00→22:12)
[2021-01-30] MEDS: VANCOMYCIN 1GM/250ML 250 ML IV SCH (12:00)
[2021-01-30] MEDS: ATORVASTATIN 20 MG TAB PO SCH (22:24)
[2021-01-30] MEDS: LITHIUM CARBONATE 300 MG TAB PO SCH (22:25)
[2021-01-31] MEDS: PIPERACILLIN-TAZOB 3.375GM 100 ML IV SCH ×4 (00:02→17:26)
[2021-01-31] MEDS: VANCOMYCIN 1GM/250ML 250 ML IV SCH ×2 (01:59→15:51)
[2021-01-31] MEDS: IPRATROPIUM BROM 0.5 MG/2.5ML INH SOL NEB SCH ×6 (02:50→22:35)
[2021-01-31] MEDS: ALBUTEROL SULF 2.5 MG/0.5ML(0.5%) NEB SOLN NEB SCH ×6 (02:50→22:35)
[2021-01-31 05:00] VITALS: BP 133/72
[2021-01-31] MEDS: FUROSEMIDE 20 MG/2 ML VIAL IV SCH ×2 (05:27→17:26)
[2021-01-31 09:00] VITALS: BP 122/73
[2021-01-31] MEDS: PANTOPRAZOLE 40 MG/10 ML VIAL INJ IV SCH (09:30)
[2021-01-31] MEDS: FLUCONAZOLE 200MG/100ML 100 ML IV SCH ×2 (09:30→11:30)
[2021-01-31] MEDS: SODIUM CHLOR 0.9% PF (SALINE LOCK) 10ML VIAL/SYR IV SCH ×2 (09:30→23:39)
[2021-01-31] MEDS: QUEtiapine FUMARATE 100 MG TAB PO SCH ×2 (09:31→23:39)
[2021-01-31] MEDS: ASPirin 81 mg TAB PO SCH (09:31)
[2021-01-31 13:08] VITALS: BP 125/74
[2021-01-31 14:18] LABS: Albumin 3.3 g/dL (3.4-5.0); BUN/Creatinine Ratio 23.8; Bilirubin, Total 1.9 mg/dL (0.2-1.0); Calcium 9.2 mg/dL (8.5-10.1); Total Protein 6.3 g/dL (6.4-8.2)
[2021-01-31 14:29] LABS: Potassium 2.9 mmol/L (3.5-5.1)
[2021-01-31] MEDS: POTASSIUM CHL 20MEQ/100ML 100 ML IV SCH ×4 (15:17→19:53)
[2021-01-31 16:39] VITALS: BP 117/60
[2021-01-31 21:35] VITALS: BP 108/86
[2021-01-31] MEDS: LITHIUM CARBONATE 300 MG TAB PO SCH (23:39)
[2021-01-31] MEDS: ATORVASTATIN 20 MG TAB PO SCH (23:39)
[2021-02-01] MEDS: PIPERACILLIN-TAZOB 3.375GM 100 ML IV SCH ×5 (01:00→23:55)
[2021-02-01] MEDS: ALBUTEROL SULF 2.5 MG/0.5ML(0.5%) NEB SOLN NEB SCH ×6 (02:26→22:37)
[2021-02-01] MEDS: IPRATROPIUM BROM 0.5 MG/2.5ML INH SOL NEB SCH ×6 (02:27→22:37)
[2021-02-01 04:31] VITALS: BP 134/76
[2021-02-01] MEDS: VANCOMYCIN 1GM/250ML 250 ML IV SCH ×2 (05:51→21:45)
[2021-02-01] MEDS: FUROSEMIDE 20 MG/2 ML VIAL IV SCH ×2 (05:52→18:23)
[2021-02-01 08:44] VITALS: BP 122/91
[2021-02-01] MEDS: ASPirin 81 mg TAB PO SCH (10:00)
[2021-02-01] MEDS: PANTOPRAZOLE 40 MG/10 ML VIAL INJ IV SCH (10:00)
[2021-02-01] MEDS: FLUCONAZOLE 200MG/100ML 100 ML IV SCH ×2 (10:00→11:00)
[2021-02-01] MEDS: SODIUM CHLOR 0.9% PF (SALINE LOCK) 10ML VIAL/SYR IV SCH ×2 (10:00→22:23)
[2021-02-01] MEDS: POTASSIUM EFFERVESENT TAB 25 MEQ PO SCH (10:00)
[2021-02-01] MEDS: QUEtiapine FUMARATE 100 MG TAB PO SCH ×2 (10:00→22:24)
[2021-02-01 12:59] VITALS: BP 127/85
[2021-02-01 16:45] VITALS: BP 137/90
[2021-02-01 22:00] VITALS: BP 134/81
[2021-02-01] MEDS: LITHIUM CARBONATE 300 MG TAB PO SCH (22:23)
[2021-02-01] MEDS: ATORVASTATIN 20 MG TAB PO SCH (22:23)
[2021-02-02] VITALS (7 sets, daily range): BP systolic 114–143; BP diastolic 69–85
[2021-02-02] MEDS: ALBUTEROL SULF 2.5 MG/0.5ML(0.5%) NEB SOLN NEB SCH ×6 (02:33→22:26)
[2021-02-02] MEDS: IPRATROPIUM BROM 0.5 MG/2.5ML INH SOL NEB SCH ×6 (02:33→22:25)
[2021-02-02] MEDS: PIPERACILLIN-TAZOB 3.375GM 100 ML IV SCH ×3 (06:19→18:06)
[2021-02-02] MEDS: FUROSEMIDE 20 MG/2 ML VIAL IV SCH ×2 (06:19→18:07)
[2021-02-02 10:40] LABS: BUN/Creatinine Ratio 11.2; Calcium 9.2 mg/dL (8.5-10.1)
[2021-02-02 10:46] LABS: Potassium 2.9 mmol/L (3.5-5.1)
[2021-02-02] MEDS: FLUCONAZOLE 200MG/100ML 100 ML IV SCH ×2 (10:50→11:00)
[2021-02-02] MEDS: PANTOPRAZOLE 40 MG/10 ML VIAL INJ IV SCH (10:50)
[2021-02-02] MEDS: POTASSIUM EFFERVESENT TAB 25 MEQ PO SCH (10:51)
[2021-02-02] MEDS: SODIUM CHLOR 0.9% PF (SALINE LOCK) 10ML VIAL/SYR IV SCH ×2 (10:51→22:51)
[2021-02-02] MEDS: ASPirin 81 mg TAB PO SCH (10:51)
[2021-02-02] MEDS: QUEtiapine FUMARATE 100 MG TAB PO SCH ×2 (10:51→22:51)
[2021-02-02] MEDS: POTASSIUM CHL 20MEQ/100ML 100 ML IV SCH ×3 (14:21→18:07)
[2021-02-02] MEDS ORDERED: FLEET ENEMA(ADULT) 135 ML PR ONE (19:00)
[2021-02-02] MEDS: LITHIUM CARBONATE 300 MG TAB PO SCH (22:51)
[2021-02-02] MEDS: ATORVASTATIN 20 MG TAB PO SCH (22:51)
[2021-02-02] MEDS: METOCLOPRAMIDE HCL 5MG/ml INJ 2ml VIAL IV SCH (22:51)
[2021-02-03] MEDS: PIPERACILLIN-TAZOB 3.375GM 100 ML IV SCH ×4 (00:17→17:26)
[2021-02-03] MEDS: IPRATROPIUM BROM 0.5 MG/2.5ML INH SOL NEB SCH ×6 (02:10→22:29)
[2021-02-03] MEDS: ALBUTEROL SULF 2.5 MG/0.5ML(0.5%) NEB SOLN NEB SCH ×6 (02:10→22:29)
[2021-02-03 05:00] VITALS: BP 128/74
[2021-02-03] MEDS: FUROSEMIDE 20 MG/2 ML VIAL IV SCH ×2 (06:30→17:24)
[2021-02-03] MEDS: METOCLOPRAMIDE HCL 5MG/ml INJ 2ml VIAL IV SCH ×3 (06:30→21:56)
[2021-02-03 07:19] LABS: BUN/Creatinine Ratio 11.1; Calcium 8.9 mg/dL (8.5-10.1)
[2021-02-03 07:38] LABS: Potassium 2.9 mmol/L (3.5-5.1)
[2021-02-03 08:42] LABS: Hemoglobin 13.5 g/dL (13.5-17.5); Mean Corpuscular Hemoglobin 29.2 pg (28.0-32.0); Mean Corpuscular Hgb Conc. 32.9 g/dL (32.0-36.0); Mean Corpuscular Volume 88.8 fL (80.0-100.0); Platelet Count (auto) 183 10^3/uL (140-450); Red Blood Cells 4.62 10^6/uL (4.5-5.90); White Blood Cell 12.2 10^3/uL (4.4-10.8)
[2021-02-03 08:50] LABS: Band Neutrophils % (manual) 0; Basophils % (manual) 0 (0.0-2.0); Blast Cells 0; Eosinophils % (manual) 0 (0-7); Metamyelocytes % 0; Myelocytes % 0; Promyelocytes % 0; Reactive Lymphocytes 0
[2021-02-03 09:03] VITALS: BP 120/75
[2021-02-03] MEDS: POTASSIUM EFFERVESENT TAB 25 MEQ PO SCH (09:53)
[2021-02-03] MEDS: SODIUM CHLOR 0.9% PF (SALINE LOCK) 10ML VIAL/SYR IV SCH ×2 (09:53→21:56)
[2021-02-03] MEDS: FLUCONAZOLE 200MG/100ML 100 ML IV SCH ×2 (09:53→10:55)
[2021-02-03] MEDS: ASPirin 81 mg TAB PO SCH (09:53)
[2021-02-03] MEDS: PANTOPRAZOLE 40 MG/10 ML VIAL INJ IV SCH (09:53)
[2021-02-03] MEDS: QUEtiapine FUMARATE 100 MG TAB PO SCH ×2 (09:54→21:56)
[2021-02-03] MEDS ORDERED: VANCOMYCIN 1GM/250ML 250 ML IV SCH (10:00)
[2021-02-03 10:38] LABS: Lymphocytes % (manual) 10 (10.0-50.0); Monocytes % (manual) 2 (0-12)
[2021-02-03] MEDS: POTASSIUM CHL 20MEQ/100ML 100 ML IV SCH ×4 (12:46→22:53)
[2021-02-03 13:00] VITALS: BP 120/80
[2021-02-03 17:37] VITALS: BP 134/75
[2021-02-03 21:44] VITALS: BP 113/79
[2021-02-03] MEDS: LITHIUM CARBONATE 300 MG TAB PO SCH (21:56)
[2021-02-03] MEDS: ATORVASTATIN 20 MG TAB PO SCH (21:56)
[2021-02-04] MEDS: PIPERACILLIN-TAZOB 3.375GM 100 ML IV SCH ×2 (00:11→05:42)
[2021-02-04] MEDS: IPRATROPIUM BROM 0.5 MG/2.5ML INH SOL NEB SCH ×6 (02:38→22:44)
[2021-02-04] MEDS: ALBUTEROL SULF 2.5 MG/0.5ML(0.5%) NEB SOLN NEB SCH ×6 (02:38→22:44)
[2021-02-04 04:39] VITALS: BP 130/86
[2021-02-04] MEDS: FUROSEMIDE 20 MG/2 ML VIAL IV SCH ×2 (05:40→18:08)
[2021-02-04] MEDS: METOCLOPRAMIDE HCL 5MG/ml INJ 2ml VIAL IV SCH ×3 (05:41→23:14)
[2021-02-04 06:10] LABS: BUN/Creatinine Ratio 11.2; Calcium 9.2 mg/dL (8.5-10.1); Potassium 3.1 mmol/L (3.5-5.1)
[2021-02-04 08:20] VITALS: BP 117/80
[2021-02-04] MEDS: SODIUM CHLOR 0.9% PF (SALINE LOCK) 10ML VIAL/SYR IV SCH ×2 (10:07→23:14)
[2021-02-04] MEDS: FLUCONAZOLE 200MG/100ML 100 ML IV SCH ×2 (10:07→11:16)
[2021-02-04] MEDS: PANTOPRAZOLE 40 MG/10 ML VIAL INJ IV SCH (10:07)
[2021-02-04] MEDS: ASPirin 81 mg TAB PO SCH (10:19)
[2021-02-04] MEDS: QUEtiapine FUMARATE 100 MG TAB PO SCH ×2 (10:19→23:18)
[2021-02-04] MEDS: POTASSIUM EFFERVESENT TAB 25 MEQ PO SCH ×3 (10:20→23:15)
[2021-02-04 12:30] VITALS: BP 110/76
[2021-02-04 16:32] VITALS: BP 132/86
[2021-02-04 18:10] VITALS: BP 152/112
[2021-02-04 22:00] VITALS: BP 125/85
[2021-02-04] MEDS: LITHIUM CARBONATE 300 MG TAB PO SCH (23:15)
[2021-02-04] MEDS: ATORVASTATIN 20 MG TAB PO SCH (23:17)
[2021-02-05] MEDS: ALBUTEROL SULF 2.5 MG/0.5ML(0.5%) NEB SOLN NEB SCH ×6 (02:34→21:44)
[2021-02-05] MEDS: IPRATROPIUM BROM 0.5 MG/2.5ML INH SOL NEB SCH ×6 (02:34→21:44)
[2021-02-05 04:44] VITALS: BP 119/76
[2021-02-05] MEDS: FUROSEMIDE 20 MG/2 ML VIAL IV SCH ×2 (06:04→18:02)
[2021-02-05 07:08] LABS: Calcium 9.4 mg/dL (8.5-10.1); Potassium 3.2 mmol/L (3.5-5.1)
[2021-02-05 07:12] LABS: BUN/Creatinine Ratio 7.5
[2021-02-05 09:00] VITALS: BP 121/86
[2021-02-05] MEDS: PANTOPRAZOLE 40 MG/10 ML VIAL INJ IV SCH (09:27)
[2021-02-05] MEDS: METOCLOPRAMIDE HCL 5MG/ml INJ 2ml VIAL IV SCH ×2 (09:28→21:37)
[2021-02-05] MEDS: QUEtiapine FUMARATE 100 MG TAB PO SCH ×2 (09:28→21:38)
[2021-02-05] MEDS: ASPirin 81 mg TAB PO SCH (09:28)
[2021-02-05] MEDS: SODIUM CHLOR 0.9% PF (SALINE LOCK) 10ML VIAL/SYR IV SCH ×2 (09:28→21:38)
[2021-02-05] MEDS: POTASSIUM EFFERVESENT TAB 25 MEQ PO SCH ×2 (09:29→21:38)
[2021-02-05 12:54] VITALS: BP 113/76
[2021-02-05 17:00] VITALS: BP 134/89
[2021-02-05] MEDS: ATORVASTATIN 20 MG TAB PO SCH (21:38)
[2021-02-05] MEDS: LITHIUM CARBONATE 300 MG TAB PO SCH (21:38)
[2021-02-05 22:00] VITALS: BP 130/80
[2021-02-06] MEDS: ALBUTEROL SULF 2.5 MG/0.5ML(0.5%) NEB SOLN NEB SCH ×6 (02:00→22:20)
[2021-02-06] MEDS: IPRATROPIUM BROM 0.5 MG/2.5ML INH SOL NEB SCH ×6 (02:00→22:20)
[2021-02-06 05:11] VITALS: BP 116/73
[2021-02-06] MEDS: FUROSEMIDE 20 MG/2 ML VIAL IV SCH ×2 (05:29→18:03)
[2021-02-06 08:39] VITALS: BP 131/53
[2021-02-06] MEDS: QUEtiapine FUMARATE 100 MG TAB PO SCH ×2 (09:48→22:14)
[2021-02-06] MEDS: METOCLOPRAMIDE HCL 5MG/ml INJ 2ml VIAL IV SCH ×2 (09:48→22:14)
[2021-02-06] MEDS: ASPirin 81 mg TAB PO SCH (09:48)
[2021-02-06] MEDS: SODIUM CHLOR 0.9% PF (SALINE LOCK) 10ML VIAL/SYR IV SCH ×2 (09:49→22:14)
[2021-02-06] MEDS: POTASSIUM EFFERVESENT TAB 25 MEQ PO SCH ×2 (09:49→22:15)
[2021-02-06] MEDS: PANTOPRAZOLE 40 MG/10 ML VIAL INJ IV SCH (09:50)
[2021-02-06] MEDS ORDERED: POTASSIUM CHLORIDE 40 MEQ, LIDOCAINE 1% (LOCAL ANESTH.) 4 ML in SODIUM CHL 0.9% 250 ML IV ONE (11:45)
[2021-02-06 13:00] VITALS: BP 132/94
[2021-02-06 16:55] VITALS: BP 127/90
[2021-02-06 21:51] VITALS: BP 130/85
[2021-02-06] MEDS: LITHIUM CARBONATE 300 MG TAB PO SCH (22:14)
[2021-02-06] MEDS: ATORVASTATIN 20 MG TAB PO SCH (22:14)
[2021-02-07] MEDS: IPRATROPIUM BROM 0.5 MG/2.5ML INH SOL NEB SCH ×6 (02:11→23:56)
[2021-02-07] MEDS: ALBUTEROL SULF 2.5 MG/0.5ML(0.5%) NEB SOLN NEB SCH ×6 (02:11→23:56)
[2021-02-07 04:00] VITALS: BP 125/79
[2021-02-07] MEDS: FUROSEMIDE 20 MG/2 ML VIAL IV SCH ×2 (05:27→21:13)
[2021-02-07 08:30] VITALS: BP 114/78
[2021-02-07] MEDS: PANTOPRAZOLE 40 MG/10 ML VIAL INJ IV SCH (09:59)
[2021-02-07] MEDS: ASPirin 81 mg TAB PO SCH (10:00)
[2021-02-07] MEDS: POTASSIUM EFFERVESENT TAB 25 MEQ PO SCH ×2 (10:00→21:14)
[2021-02-07] MEDS: SODIUM CHLOR 0.9% PF (SALINE LOCK) 10ML VIAL/SYR IV SCH ×2 (10:00→21:14)
[2021-02-07] MEDS: METOCLOPRAMIDE HCL 5MG/ml INJ 2ml VIAL IV SCH ×2 (10:00→21:13)
[2021-02-07] MEDS: QUEtiapine FUMARATE 100 MG TAB PO SCH (10:01)
[2021-02-07 13:00] VITALS: BP 121/70
[2021-02-07 17:00] VITALS: BP 123/68
[2021-02-07] MEDS: LITHIUM CARBONATE 300 MG TAB PO SCH (21:14)
[2021-02-07] MEDS: ATORVASTATIN 20 MG TAB PO SCH (21:14)
[2021-02-07 22:07] VITALS: BP 126/106
[2021-02-08 05:03] VITALS: BP 140/79
[2021-02-08] MEDS: FUROSEMIDE 20 MG/2 ML VIAL IV SCH ×2 (06:08→18:00)
[2021-02-08] MEDS: IPRATROPIUM BROM 0.5 MG/2.5ML INH SOL NEB SCH ×5 (06:23→22:36)
[2021-02-08] MEDS: ALBUTEROL SULF 2.5 MG/0.5ML(0.5%) NEB SOLN NEB SCH ×5 (06:23→22:36)
[2021-02-08 09:00] VITALS: BP 117/67
[2021-02-08] MEDS: PANTOPRAZOLE 40 MG/10 ML VIAL INJ IV SCH (10:18)
[2021-02-08] MEDS: METOCLOPRAMIDE HCL 5MG/ml INJ 2ml VIAL IV SCH ×2 (10:19→21:16)
[2021-02-08] MEDS: ASPirin 81 mg TAB PO SCH (10:19)
[2021-02-08] MEDS: POTASSIUM EFFERVESENT TAB 25 MEQ PO SCH ×2 (10:19→21:16)
[2021-02-08] MEDS: SODIUM CHLOR 0.9% PF (SALINE LOCK) 10ML VIAL/SYR IV SCH ×2 (10:19→21:16)
[2021-02-08 13:00] VITALS: BP 113/87
[2021-02-08 17:00] VITALS: BP 124/80
[2021-02-08 20:28] VITALS: BP 124/80
[2021-02-08] MEDS: ATORVASTATIN 20 MG TAB PO SCH (21:16)
[2021-02-08] MEDS: LITHIUM CARBONATE 300 MG TAB PO SCH (21:16)
[2021-02-08 23:42] VITALS: BP 120/74
[2021-02-09] MEDS: ALBUTEROL SULF 2.5 MG/0.5ML(0.5%) NEB SOLN NEB SCH ×6 (02:14→22:09)
[2021-02-09] MEDS: IPRATROPIUM BROM 0.5 MG/2.5ML INH SOL NEB SCH ×6 (02:14→22:09)
[2021-02-09 05:00] VITALS: BP 133/75
[2021-02-09] MEDS: FUROSEMIDE 20 MG/2 ML VIAL IV SCH ×2 (05:18→18:08)
[2021-02-09 09:00] VITALS: BP 116/72
[2021-02-09] MEDS: METOCLOPRAMIDE HCL 5MG/ml INJ 2ml VIAL IV SCH ×2 (09:12→21:23)
[2021-02-09] MEDS: PANTOPRAZOLE 40 MG/10 ML VIAL INJ IV SCH (09:12)
[2021-02-09] MEDS: POTASSIUM EFFERVESENT TAB 25 MEQ PO SCH ×2 (09:13→21:24)
[2021-02-09] MEDS: SODIUM CHLOR 0.9% PF (SALINE LOCK) 10ML VIAL/SYR IV SCH ×2 (09:13→21:23)
[2021-02-09] MEDS: ASPirin 81 mg TAB PO SCH (09:13)
[2021-02-09] MEDS ORDERED: QUEtiapine FUMARATE 100 MG TAB PO ONE (11:15)
[2021-02-09 13:00] VITALS: BP 144/83
[2021-02-09 17:00] VITALS: BP 113/67
[2021-02-09] MEDS: LITHIUM CARBONATE 300 MG TAB PO SCH (21:23)
[2021-02-09] MEDS: ATORVASTATIN 20 MG TAB PO SCH (21:24)
[2021-02-09] MEDS: QUEtiapine FUMARATE 100 MG TAB PO SCH (21:24)
[2021-02-09] MEDS: traZODone HCL 50 MG TAB PO SCH (21:24)
[2021-02-09 22:00] VITALS: BP 126/70
[2021-02-10] MEDS: ALBUTEROL SULF 2.5 MG/0.5ML(0.5%) NEB SOLN NEB SCH ×5 (02:15→22:18)
[2021-02-10] MEDS: IPRATROPIUM BROM 0.5 MG/2.5ML INH SOL NEB SCH ×5 (02:15→22:18)
[2021-02-10 05:00] VITALS: BP 113/73
[2021-02-10] MEDS: FUROSEMIDE 20 MG/2 ML VIAL IV SCH ×2 (05:17→17:37)
[2021-02-10 08:42] VITALS: BP 141/79
[2021-02-10] MEDS: METOCLOPRAMIDE HCL 5MG/ml INJ 2ml VIAL IV SCH ×2 (09:39→21:48)
[2021-02-10] MEDS: PANTOPRAZOLE 40 MG/10 ML VIAL INJ IV SCH (09:39)
[2021-02-10] MEDS: ASPirin 81 mg TAB PO SCH (09:40)
[2021-02-10] MEDS: POTASSIUM EFFERVESENT TAB 25 MEQ PO SCH ×2 (09:40→21:48)
[2021-02-10] MEDS: SODIUM CHLOR 0.9% PF (SALINE LOCK) 10ML VIAL/SYR IV SCH ×2 (09:40→21:48)
[2021-02-10] MEDS: QUEtiapine FUMARATE 100 MG TAB PO SCH ×2 (09:41→21:49)
[2021-02-10 13:03] VITALS: BP 131/76
[2021-02-10 16:40] VITALS: BP 117/71
[2021-02-10] MEDS: traZODone HCL 50 MG TAB PO SCH (21:48)
[2021-02-10] MEDS: LITHIUM CARBONATE 300 MG TAB PO SCH (21:48)
[2021-02-10] MEDS: ATORVASTATIN 20 MG TAB PO SCH (21:49)
[2021-02-10 22:00] VITALS: BP 127/84
[2021-02-11] MEDS: ALBUTEROL SULF 2.5 MG/0.5ML(0.5%) NEB SOLN NEB SCH ×3 (02:26→09:31)
[2021-02-11] MEDS: IPRATROPIUM BROM 0.5 MG/2.5ML INH SOL NEB SCH ×3 (02:26→09:31)
[2021-02-11 05:00] VITALS: BP 119/81
[2021-02-11] MEDS: FUROSEMIDE 20 MG/2 ML VIAL IV SCH (05:09)
[2021-02-11 09:00] VITALS: BP 113/70
[2021-02-11] MEDS: METOCLOPRAMIDE HCL 5MG/ml INJ 2ml VIAL IV SCH (09:12)
[2021-02-11] MEDS: SODIUM CHLOR 0.9% PF (SALINE LOCK) 10ML VIAL/SYR IV SCH (09:12)
[2021-02-11] MEDS: PANTOPRAZOLE 40 MG/10 ML VIAL INJ IV SCH (09:12)
[2021-02-11] MEDS: ASPirin 81 mg TAB PO SCH (09:13)
[2021-02-11] MEDS: POTASSIUM EFFERVESENT TAB 25 MEQ PO SCH (09:13)
[2021-02-11] MEDS: QUEtiapine FUMARATE 100 MG TAB PO SCH ×2 (09:14→10:14)
[2021-02-11 10:29] VITALS: BP 119/87
[2021-02-11] MEDS ORDERED: PNEUMOCOCCAL VACC POLYS 25 MCG/0.5 ML VIAL IM ONE (12:15)
[2021-02-11 12:35] VITALS: BP 116/70
== END 2021-02-11 12:37 | DRG 871 ==
LOC: EDBD 21:58 → ER 22:01 → TELE 22:02 → TELE-CENTR 01-16 05:45 → ICU WEST 01-17 14:11 → WEST WING 01-24 07:45 → TELE-WESTW 01-24 08:03
PROVIDERS: ADMIT Nurse Practitioner; ATTEND Family Medicine
PROC: 05HF33Z Insertion of Infusion Device into Left Cephalic Vein, Percutaneous Approach (ICD-10-PCS; 2021-01-16)
PROC: B54NZZA Ultrasonography of Left Upper Extremity Veins, Guidance (ICD-10-PCS; 2021-01-16)
PROC: 5A09357 Assistance with Respiratory Ventilation, Less than 24 Consecutive Hours, Continuous Positive Airway Pressure (ICD-10-PCS; principal; 2021-01-17)
PROC: 5A1945Z Respiratory Ventilation, 24-96 Consecutive Hours (ICD-10-PCS; 2021-01-17)
PROC: 0BH17EZ Insertion of Endotracheal Airway into Trachea, Via Natural or Artificial Opening (ICD-10-PCS; 2021-01-17)
PROC: 02HV33Z Insertion of Infusion Device into Superior Vena Cava, Percutaneous Approach (ICD-10-PCS; 2021-01-17)
PROC: B548ZZA Ultrasonography of Superior Vena Cava, Guidance (ICD-10-PCS; 2021-01-17)
PROC: 0D9670Z Drainage of Stomach with Drainage Device, Via Natural or Artificial Opening (ICD-10-PCS; 2021-01-30)
DX: A41.9 Sepsis, unspecified organism (principal); I50.43 Acute on chronic combined systolic (congestive) and diastolic (congestive) heart failure; J96.21 Acute and chronic respiratory failure with hypoxia; J18.9 Pneumonia, unspecified organism; J96.22 Acute and chronic respiratory failure with hypercapnia; F20.1 Disorganized schizophrenia; J44.0 Chronic obstructive pulmonary disease with (acute) lower respiratory infection; J44.1 Chronic obstructive pulmonary disease with (acute) exacerbation; K56.600 Partial intestinal obstruction, unspecified as to cause; I47.1 Supraventricular tachycardia; K56.0 Paralytic ileus; I13.0 Hypertensive heart and chronic kidney disease with heart failure and stage 1 through stage 4 chronic kidney disease, or unspecified chronic kidney disease; K31.89 Other diseases of stomach and duodenum; Z20.822 Contact with and (suspected) exposure to COVID-19; N18.9 Chronic kidney disease, unspecified; E78.00 Pure hypercholesterolemia, unspecified; E87.6 Hypokalemia; Z28.9 Immunization not carried out for unspecified reason
CPT/HCPCS: 36415; 36569; 36600; 70450; 71045; 71250; 74021; 74176; 74250; 80048; 80053; 80202; 80307; 80320; 81001; 82565; 82805; 83605; 83735; 83880; 84132; 84484; 85007; 85025; 85027; 85379; 85610; 85730; 87040; 87070; 87077; 87081; 87086; 87205; 87426; 92610; 93005; 93306; 94002; 94003; 94640; 94660; 97110; 97116; 97530; C9113; G0378; J0330; J0696; J1450; J2001; J2250; J2543; J3480; J7060